=== PATIENT | female | born 1965 | race Caucasian/White ===

== ENCOUNTER 2024-01-10 17:47 | Inpatient (IN) | payer OTHER ==
[~2024-01-10] VITALS: Ht 157.5 cm; Wt 68.0 kg
[2024-01-10 17:59] VITALS: BP_SYST 156; PULSE 105; RESP 20; TEMP 100.2; O2SAT 98
[2024-01-10 18:48] LABS: BASOPHILS # (AUTO) 0.1 K/uL (0.0-0.2); BASOPHILS % (AUTO) 0.5 % (0.0-2.0); EOSINOPHILS % (AUTO) 0.1 % (0.0-4.0); HEMATOCRIT 36.8 % (36-48); HEMOGLOBIN 12.6 g/dL (12.0-16.0); LYMPHOCYTES # (AUTO) 2.9 K/uL (1.0-5.5); MEAN CORPUSCULAR HEMOGLOBIN 30 pg (27-31); MEAN CORPUSCULAR HGB CONC 34 % (32-36); MEAN CORPUSCULAR VOLUME 87 fL (79.0-98.0); MONOCYTES # (AUTO) 1.8 K/uL (0.0-1.0); MONOCYTES % (AUTO) 9.4 % (1.7-9.3); NEUTROPHILS # (AUTO) 14.4 K/uL (1.8-7.7); NEUTROPHILS % (AUTO) 74.7 % (40.0-70.0); PLATELET COUNT (AUTO) 247 K/uL (130-430); RED BLOOD CELL COUNT(AUTO) 4.24 MIL/uL (4.2-6.2); RED CELL DISTRIBUTION WIDTH 13.7 % (9.0-15.0); WHITE BLOOD COUNT (AUTO) 19.2 K/uL (4.8-10.8)
[2024-01-10] MEDS: ONDANSETRON HCL 4 MG/2 ML VIAL IVP ONE (18:59)
[2024-01-10] MEDS: MORPHINE 4 MG INJ. 4 MG/ML VIAL IVP ONE (18:59)
[2024-01-10] MEDS: NACL 0.9% 1,000 ML IV ONE ×2 (18:59→22:03)
[2024-01-10 19:07] LABS: CALCIUM 8.9 mg/dL (8.4-11.0); CREATININE 0.89 mg/dL (0.55-1.30); POTASSIUM 3.8 mmol/L (3.5-5.1)
[2024-01-10 19:11] LABS: BILIRUBIN,DIRECT 0.2 mg/dL (0.0-0.3); TOTAL BILIRUBIN 0.7 mg/dL (0.0-1.0); TOTAL PROTEIN, SERUM 7.2 g/dL (6.4-8.3)
[2024-01-10 19:12] LABS: BILIRUBIN,URINE 1+ (NEGATIVE); BLOOD, URINE 1+ (NEGATIVE); CLARITY/URINE CLEAR (CLEAR); COLOR,URINE YELLOW (YELLOW); GLUCOSE,URINE NEGATIVE (NEGATIVE); KETONES,URINE 3+ (NEGATIVE); LEUKOCYTE ESTERASE ,URINE NEGATIVE (NEGATIVE); NITRITE, URINE NEGATIVE (NEGATIVE); PROTEIN URINE NEGATIVE (NEGATIVE)
[2024-01-10 19:15] LABS: LYMPHOCYTES % (AUTO) 15.3 % (20.5-51.5)
[2024-01-10 19:22] LABS: BACTERIA,URINE FEW /HPF (None Seen); MUCUS,URINE None Seen /LPF (None Seen); RBC,URINE 0-3 /HPF (0-3); WBC,URINE 0-3 /HPF (0-3)
[2024-01-10] MEDS: ACETAMINOPHEN 500 MG TABLET PO ONE (19:24)
[2024-01-10] MEDS ORDERED: BUDE6HFA INH (19:51)
[2024-01-10] MEDS ORDERED: ALBU2.5V7 INH (19:51)
[2024-01-10] MEDS ORDERED: DIVA500T4 PO (19:51)
[2024-01-10] MEDS ORDERED: UBRO50TA (19:51)
[2024-01-10] MEDS ORDERED: ATRMDI INH (19:51)
[2024-01-10] MEDS ORDERED: LOSA25TA18 PO (19:51)
[2024-01-10] MEDS ORDERED: OMEP10SU2 PO (19:51)
[2024-01-10] MEDS ORDERED: PSEU30TA36 PO (19:51)
[2024-01-10] MEDS ORDERED: LORA10TA7 PO (19:51)
[2024-01-10] MEDS ORDERED: MONT-40 PO (19:51)
[2024-01-10] MEDS ORDERED: IBUP-2604 PO (20:10)
[2024-01-10] MEDS ORDERED: FISH400C3 PO (20:18)
[2024-01-10] MEDS ORDERED: [UNRECOGNIZED DRUG - CODE] PO (20:18)
[2024-01-10] MEDS ORDERED: ASCO500T20 PO (20:18)
[2024-01-10] MEDS ORDERED: ZINC10LO5 PO (20:18)
[2024-01-10] MEDS ORDERED: VIT1CAPS46 PO (20:18)
[2024-01-10] MEDS ORDERED: [UNRECOGNIZED DRUG - CODE] PO (20:18)
[2024-01-10] MEDS ORDERED: MULT-1164 PO (20:18)
[2024-01-10] MEDS ORDERED: CINN1CAP2 PO (20:18)
[2024-01-10] MEDS: KETOROLAC TROMETHAMINE 30 MG VIAL IVP ONE (20:52)
[2024-01-10] MEDS: metroNIDAZOLE 500 mg/NS 100 ML IV ONE (22:04)
[2024-01-11] VITALS (10 sets, daily range): BP systolic 122–145; PULSE 67–88; RESP 18–20; TEMP 97.1–100.7; O2SAT 90–98
[2024-01-11] MEDS: MORPHINE 4 MG INJ. 4 MG/ML VIAL IVP PRN (00:35)
[2024-01-11] MEDS: D5/0.45 NS 1,000 ML IV SCH (00:36)
[2024-01-11] MEDS: PIPERACILLIN/TAZOBACTAM 3.375 GM/VIAL (ZOSYN) IV ONE (03:26)
[2024-01-11] MEDS: PIPERACILLIN/TAZO 3.375 GM in NS 50 ML IV SCH (05:51)
[2024-01-11] MEDS ORDERED: ONDANSETRON HCL 4 MG/2 ML VIAL IVP PRN (06:00)
[2024-01-11] MEDS: ACETAMINOPHEN 325 MG TABLET PO PRN (06:56)
[2024-01-11] MEDS: ONDANSETRON HCL 4 MG/2 ML VIAL IVP PRN (06:57)
[2024-01-11] MEDS ORDERED: IPRATROPIUM BROMIDE 17 mCg/ACTUATION, 12.9 GM AER.W.ADAP INH SCH (15:00)
[2024-01-11] MEDS: MONTELUKAST 10 MG TABLET PO SCH (18:09)
[2024-01-11] MEDS: traMADol HCL HCL 50 MG TABLET (ULTRAM) PO PRN (18:09)
[2024-01-11] MEDS: BUDESONIDE 0.5 MG/2 ML AMPUL.NEB INH SCH (20:19)
[2024-01-11] MEDS: IPRATROPIUM/ALBUTEROL SULFATE 3 ML AMPUL.NEB (DUONEB) INH SCH (20:28)
[2024-01-11] MEDS ORDERED: BUDESONIDE/FORMOTEROL 160-4.5 mCg, 6 GM INHALER INH SCH (21:00)
[2024-01-11] MEDS: DIVALPROEX SODIUM 500 MG TAB.SR.24H (DEPAKOTE ER) PO SCH (21:57)
[2024-01-12] VITALS (11 sets, daily range): BP systolic 119–133; PULSE 72–93; RESP 16–18; TEMP 97.8–99.3; O2SAT 94–100
[2024-01-12 06:37] LABS: HEMATOCRIT 35.5 % (36-48); MEAN CORPUSCULAR HEMOGLOBIN 30 pg (27-31); MEAN CORPUSCULAR HGB CONC 34 % (32-36); MEAN CORPUSCULAR VOLUME 88 fL (79.0-98.0); PLATELET COUNT (AUTO) 226 K/uL (130-430); RED BLOOD CELL COUNT(AUTO) 4.03 MIL/uL (4.2-6.2); RED CELL DISTRIBUTION WIDTH 13.5 % (9.0-15.0); WHITE BLOOD COUNT (AUTO) 18.9 K/uL (4.8-10.8)
[2024-01-12 07:00] LABS: CALCIUM 8.6 mg/dL (8.4-11.0); CREATININE 0.92 mg/dL (0.55-1.30); POTASSIUM 3.7 mmol/L (3.5-5.1)
[2024-01-12] MEDS: MULTIVITS,CA,MINERALS/IRON/FA 1 TABLET PO SCH (09:11)
[2024-01-12] MEDS: ASCORBIC ACID 500 MG TABLET PO SCH (09:13)
[2024-01-12 09:34] LABS: BASOPHILS % (MANUAL) 0 % (0-2); EOSINOPHILS % (MANUAL) 0 % (0-7); LYMPHOCYTES % (MANUAL) 16 % (20-46); MONOCYTES % (MANUAL) 10 % (0-11); PLATELET ESTIMATE ADEQUATE (ADEQUATE)
[2024-01-12] MEDS: POTASSIUM CHLORIDE 20 MEQ TABLET.ER PO ONE (13:59)
[2024-01-12] MEDS: P-EPHED SUL/LORATADINE 1 EACH TAB.SR.12H PO ONE (16:20)
[2024-01-13] VITALS (8 sets, daily range): BP systolic 116–130; PULSE 60–97; RESP 16–20; TEMP 97.9–99.7; O2SAT 97–100
[2024-01-13 06:20] LABS: BASOPHILS % (AUTO) 0.3 % (0.0-2.0); EOSINOPHILS # (AUTO) 0.1 K/uL (0.0-0.4); EOSINOPHILS % (AUTO) 0.8 % (0.0-4.0); HEMATOCRIT 33.2 % (36-48); HEMOGLOBIN 11.2 g/dL (12.0-16.0); LYMPHOCYTES # (AUTO) 2.4 K/uL (1.0-5.5); LYMPHOCYTES % (AUTO) 14.8 % (20.5-51.5); MEAN CORPUSCULAR HEMOGLOBIN 30 pg (27-31); MEAN CORPUSCULAR HGB CONC 34 % (32-36); MEAN CORPUSCULAR VOLUME 88 fL (79.0-98.0); MONOCYTES # (AUTO) 1.5 K/uL (0.0-1.0); MONOCYTES % (AUTO) 9.3 % (1.7-9.3); NEUTROPHILS # (AUTO) 12.2 K/uL (1.8-7.7); NEUTROPHILS % (AUTO) 74.8 % (40.0-70.0); PLATELET COUNT (AUTO) 231 K/uL (130-430); RED BLOOD CELL COUNT(AUTO) 3.78 MIL/uL (4.2-6.2); RED CELL DISTRIBUTION WIDTH 13.6 % (9.0-15.0); WHITE BLOOD COUNT (AUTO) 16.2 K/uL (4.8-10.8)
[2024-01-13 06:33] LABS: CALCIUM 8.2 mg/dL (8.4-11.0); CREATININE 0.74 mg/dL (0.55-1.30); POTASSIUM 3.5 mmol/L (3.5-5.1)
[2024-01-13] MEDS: ALBUTEROL SULFATE 0.083% 2.5 MG/3 ML VIAL.NEB INH PRN (07:47)
[2024-01-13] MEDS: P-EPHED SUL/LORATADINE 1 EACH TAB.SR.12H PO SCH (10:24)
[2024-01-13] MEDS ORDERED: DIATR MEGLU/DIATRIZ SOD 30 ML SOLUTION PO ONE (13:19)
[2024-01-13] MEDS: NORMAL SALINE 5 ML DISP.SYRIN IVF SCH (21:47)
[2024-01-13] MEDS: metroNIDAZOLE 500 mg/NS 100 ML IV SCH (21:49)
[2024-01-14] VITALS (9 sets, daily range): BP systolic 131–145; PULSE 86–95; RESP 16–18; TEMP 97.6–98.2; O2SAT 94–100
[2024-01-14 06:18] LABS: BASOPHILS % (AUTO) 0.3 % (0.0-2.0); EOSINOPHILS # (AUTO) 0.2 K/uL (0.0-0.4); EOSINOPHILS % (AUTO) 1.5 % (0.0-4.0); HEMATOCRIT 32.6 % (36-48); HEMOGLOBIN 11.2 g/dL (12.0-16.0); LYMPHOCYTES # (AUTO) 2.5 K/uL (1.0-5.5); LYMPHOCYTES % (AUTO) 20.7 % (20.5-51.5); MEAN CORPUSCULAR HEMOGLOBIN 30 pg (27-31); MEAN CORPUSCULAR HGB CONC 34 % (32-36); MEAN CORPUSCULAR VOLUME 87 fL (79.0-98.0); MONOCYTES # (AUTO) 1.1 K/uL (0.0-1.0); MONOCYTES % (AUTO) 9.3 % (1.7-9.3); NEUTROPHILS # (AUTO) 8.2 K/uL (1.8-7.7); NEUTROPHILS % (AUTO) 68.2 % (40.0-70.0); PLATELET COUNT (AUTO) 268 K/uL (130-430); RED BLOOD CELL COUNT(AUTO) 3.74 MIL/uL (4.2-6.2); RED CELL DISTRIBUTION WIDTH 13.4 % (9.0-15.0)
[2024-01-14 06:37] LABS: ALBUMIN 2.2 g/dL (3.4-4.8); CALCIUM 8.3 mg/dL (8.4-11.0); CREATININE 0.71 mg/dL (0.55-1.30); POTASSIUM 3.4 mmol/L (3.5-5.1); TOTAL BILIRUBIN 0.3 mg/dL (0.0-1.0); TOTAL PROTEIN, SERUM 6.1 g/dL (6.4-8.3)
[2024-01-15] VITALS (9 sets, daily range): BP systolic 126–143; PULSE 78–95; RESP 18–20; TEMP 97.8–98.4; O2SAT 93–99
[2024-01-15 04:17] LABS: BASOPHILS # (AUTO) 0.1 K/uL (0.0-0.2); BASOPHILS % (AUTO) 0.6 % (0.0-2.0); EOSINOPHILS # (AUTO) 0.2 K/uL (0.0-0.4); EOSINOPHILS % (AUTO) 1.8 % (0.0-4.0); HEMATOCRIT 33.6 % (36-48); HEMOGLOBIN 11.5 g/dL (12.0-16.0); LYMPHOCYTES # (AUTO) 2.5 K/uL (1.0-5.5); MEAN CORPUSCULAR HEMOGLOBIN 30 pg (27-31); MEAN CORPUSCULAR HGB CONC 34 % (32-36); MEAN CORPUSCULAR VOLUME 87 fL (79.0-98.0); MONOCYTES # (AUTO) 0.9 K/uL (0.0-1.0); NEUTROPHILS # (AUTO) 5.9 K/uL (1.8-7.7); NEUTROPHILS % (AUTO) 62.6 % (40.0-70.0); PLATELET COUNT (AUTO) 304 K/uL (130-430); RED BLOOD CELL COUNT(AUTO) 3.86 MIL/uL (4.2-6.2); RED CELL DISTRIBUTION WIDTH 13.6 % (9.0-15.0); WHITE BLOOD COUNT (AUTO) 9.5 K/uL (4.8-10.8)
[2024-01-15 04:41] LABS: ALBUMIN 2.5 g/dL (3.4-4.8); CALCIUM 8.4 mg/dL (8.4-11.0); CREATININE 0.8 mg/dL (0.55-1.30); POTASSIUM 3.1 mmol/L (3.5-5.1); TOTAL BILIRUBIN 0.3 mg/dL (0.0-1.0); TOTAL PROTEIN, SERUM 6.9 g/dL (6.4-8.3)
[2024-01-15] MEDS: POTASSIUM CHLORIDE 20 MEQ TABLET.ER PO ONE (12:37)
[2024-01-16] VITALS (10 sets, daily range): BP systolic 124–149; PULSE 74–84; RESP 16–20; TEMP 97.2–98.3; O2SAT 95–100
[2024-01-16 06:30] LABS: BASOPHILS # (AUTO) 0.1 K/uL (0.0-0.2); BASOPHILS % (AUTO) 0.7 % (0.0-2.0); EOSINOPHILS # (AUTO) 0.3 K/uL (0.0-0.4); EOSINOPHILS % (AUTO) 3.7 % (0.0-4.0); HEMATOCRIT 32.5 % (36-48); LYMPHOCYTES # (AUTO) 2.2 K/uL (1.0-5.5); LYMPHOCYTES % (AUTO) 29.7 % (20.5-51.5); MEAN CORPUSCULAR HEMOGLOBIN 30 pg (27-31); MEAN CORPUSCULAR HGB CONC 34 % (32-36); MEAN CORPUSCULAR VOLUME 87 fL (79.0-98.0); MONOCYTES # (AUTO) 0.8 K/uL (0.0-1.0); NEUTROPHILS # (AUTO) 4.2 K/uL (1.8-7.7); NEUTROPHILS % (AUTO) 55.9 % (40.0-70.0); PLATELET COUNT (AUTO) 301 K/uL (130-430); RED BLOOD CELL COUNT(AUTO) 3.72 MIL/uL (4.2-6.2); RED CELL DISTRIBUTION WIDTH 13.6 % (9.0-15.0); WHITE BLOOD COUNT (AUTO) 7.5 K/uL (4.8-10.8)
[2024-01-16 06:55] LABS: ALBUMIN 2.3 g/dL (3.4-4.8); CALCIUM 8.2 mg/dL (8.4-11.0); CREATININE 0.77 mg/dL (0.55-1.30); POTASSIUM 3.4 mmol/L (3.5-5.1); TOTAL BILIRUBIN 0.2 mg/dL (0.0-1.0); TOTAL PROTEIN, SERUM 6.2 g/dL (6.4-8.3)
[2024-01-16] MEDS: VANCOMYCIN HCL ORAL SOLUTION 125 MG/5 ML, 150 ML PO SCH (12:21)
[2024-01-16] MEDS ORDERED: SACCHAROMYCES BOULARDII 250 MG CAPSULE (FLORASTOR) PO SCH (12:45)
[2024-01-16] MEDS: LACTOBACILLUS RHAMNOSUS GG 1 CAP CAPSULE PO ONE (13:30)
[2024-01-16] MEDS: LACTOBACILLUS RHAMNOSUS GG 1 CAP CAPSULE PO SCH (21:33)
[2024-01-17] VITALS (11 sets, daily range): BP systolic 124–162; PULSE 82–90; RESP 16–18; TEMP 97.8–98.2; O2SAT 96–100
[2024-01-17 05:41] LABS: BASOPHILS # (AUTO) 0.1 K/uL (0.0-0.2); BASOPHILS % (AUTO) 0.8 % (0.0-2.0); EOSINOPHILS # (AUTO) 0.2 K/uL (0.0-0.4); EOSINOPHILS % (AUTO) 2.7 % (0.0-4.0); HEMOGLOBIN 11.6 g/dL (12.0-16.0); LYMPHOCYTES # (AUTO) 2.4 K/uL (1.0-5.5); LYMPHOCYTES % (AUTO) 25.8 % (20.5-51.5); MEAN CORPUSCULAR HEMOGLOBIN 30 pg (27-31); MEAN CORPUSCULAR HGB CONC 34 % (32-36); MEAN CORPUSCULAR VOLUME 87 fL (79.0-98.0); MONOCYTES # (AUTO) 0.9 K/uL (0.0-1.0); MONOCYTES % (AUTO) 9.3 % (1.7-9.3); NEUTROPHILS # (AUTO) 5.7 K/uL (1.8-7.7); NEUTROPHILS % (AUTO) 61.4 % (40.0-70.0); PLATELET COUNT (AUTO) 360 K/uL (130-430); RED CELL DISTRIBUTION WIDTH 13.7 % (9.0-15.0); WHITE BLOOD COUNT (AUTO) 9.3 K/uL (4.8-10.8)
[2024-01-17 06:06] LABS: ALBUMIN 2.6 g/dL (3.4-4.8); CALCIUM 8.6 mg/dL (8.4-11.0); CREATININE 0.87 mg/dL (0.55-1.30); POTASSIUM 3.4 mmol/L (3.5-5.1); TOTAL BILIRUBIN 0.2 mg/dL (0.0-1.0); TOTAL PROTEIN, SERUM 6.9 g/dL (6.4-8.3)
[2024-01-17] MEDS ORDERED: DIATR MEGLU/DIATRIZ SOD 30 ML SOLUTION PO ONE (12:59)
[2024-01-17] MEDS: LOSARTAN POTASSIUM 25 MG TABLET PO ONE (13:15)
[2024-01-17] MEDS ORDERED: VANC125C10 PO (14:16)
[2024-01-17] MEDS ORDERED: AUG875 PO (17:14)
[2024-01-17] MEDS ORDERED: LACT1CAP57 PO (17:15)
[2024-01-18] MEDS ORDERED: LOSARTAN POTASSIUM 25 MG TABLET PO SCH (09:00)
== END 2024-01-17 18:45 | disposition home or self-care (01) | DRG 872 ==
LOC: SED 17:47 → SMU 22:21
PROVIDERS: ADMIT Specialist; ATTEND Specialist
DX: A41.9 Sepsis, unspecified organism (principal); K57.20 Diverticulitis of large intestine with perforation and abscess without bleeding; A04.72 Enterocolitis due to Clostridium difficile, not specified as recurrent; I10 Essential (primary) hypertension; J45.909 Unspecified asthma, uncomplicated; N83.202 Unspecified ovarian cyst, left side; K76.0 Fatty (change of) liver, not elsewhere classified; G89.29 Other chronic pain; Z88.8 Allergy status to other drugs, medicaments and biological substances; Z88.2 Allergy status to sulfonamides; Z90.710 Acquired absence of both cervix and uterus
CPT/HCPCS: 36415; 70486-TC; 80048; 80053; 80076; 81000; 81001; 81015; 83605; 83690; 85007; 85025; 85027; 87040; 87230; 94640; 94760; 99285; J1885; J1956; J2270; J2405; J2543; J3490; J7626; Q9964; Q9967

== ENCOUNTER 2024-01-28 18:23 | Inpatient (IN) | payer OTHER ==
[~2024-01-28] VITALS: Ht 154.9 cm; Wt 63.5 kg
[~2024-01-28 18:23] MED LIST: ALBU2.5V7 INH; ASCO500T20 PO; ATRMDI INH; AUG875 PO; BUDE6HFA INH; CINN1CAP2 PO; DIVA500T4 PO; FISH400C3 PO; IBUP-2604 PO; LACT1CAP57 PO; LORA10TA7 PO; LOSA25TA18 PO; MONT-40 PO; MULT-1164 PO; PSEU30TA36 PO; UBRO50TA; VANC125C10 PO; VIT1CAPS46 PO; ZINC10LO5 PO; [UNRECOGNIZED DRUG - CODE] PO; [UNRECOGNIZED DRUG - CODE] PO
[2024-01-28 18:33] VITALS: BP_SYST 137; PULSE 93; RESP 20; TEMP 97.5; O2SAT 100
[2024-01-28 19:14] LABS: BILIRUBIN,URINE NEGATIVE (NEGATIVE); BLOOD, URINE NEGATIVE (NEGATIVE); COLOR,URINE YELLOW (YELLOW); GLUCOSE,URINE NEGATIVE (NEGATIVE); KETONES,URINE NEGATIVE (NEGATIVE); LEUKOCYTE ESTERASE ,URINE 1+ (NEGATIVE); NITRITE, URINE NEGATIVE (NEGATIVE); PH,URINE 7.5 (5.0-8.0); PROTEIN URINE NEGATIVE (NEGATIVE); UROBILINOGEN,URINE 0.2 (0.2-1.0)
[2024-01-28 19:19] LABS: CLARITY/URINE SLIGHTLY HAZY (CLEAR)
[2024-01-28 19:34] LABS: BACTERIA,URINE MODERATE /HPF (None Seen); RBC,URINE 0-3 /HPF (0-3)
[2024-01-28 19:35] LABS: MUCUS,URINE 1+ /LPF (None Seen); URINE AMORPHOUS PHOSPHATES 2+ /HPF (None Seen)
[2024-01-28] MEDS: NS 1000 ML IV.SOLN IV ONE (20:25)
[2024-01-28 20:54] LABS: BASOPHILS # (AUTO) 0.1 K/uL (0.0-0.2); BASOPHILS % (AUTO) 1.1 % (0.0-2.0); EOSINOPHILS # (AUTO) 0.1 K/uL (0.0-0.4); EOSINOPHILS % (AUTO) 1.2 % (0.0-4.0); HEMATOCRIT 36.6 % (36-48); HEMOGLOBIN 12.3 g/dL (12.0-16.0); LYMPHOCYTES # (AUTO) 3.4 K/uL (1.0-5.5); LYMPHOCYTES % (AUTO) 28.1 % (20.5-51.5); MEAN CORPUSCULAR HEMOGLOBIN 29 pg (27-31); MEAN CORPUSCULAR HGB CONC 34 % (32-36); MEAN CORPUSCULAR VOLUME 88 fL (79.0-98.0); MONOCYTES % (AUTO) 8.3 % (1.7-9.3); NEUTROPHILS # (AUTO) 7.5 K/uL (1.8-7.7); NEUTROPHILS % (AUTO) 61.3 % (40.0-70.0); PLATELET COUNT (AUTO) 288 K/uL (130-430); RED BLOOD CELL COUNT(AUTO) 4.19 MIL/uL (4.2-6.2); RED CELL DISTRIBUTION WIDTH 14.1 % (9.0-15.0); WHITE BLOOD COUNT (AUTO) 12.3 K/uL (4.8-10.8)
[2024-01-28 21:05] LABS: ANION GAP 11 (5-15); CALCIUM 8.8 mg/dL (8.4-11.0); CARBON DIOXIDE 28 mmol/L (23-29); CHLORIDE 105 mmol/L (98-107); GFR AFRICAN AMERICAN 83 mL/min (>90); GLUCOSE 89 mg/dL (74-106); POTASSIUM 3.9 mmol/L (3.5-5.1); SODIUM SERUM 144 mmol/L (136-145); UREA NITROGEN, BLOOD 15 mg/dL (8-21)
[2024-01-28 21:06] LABS: GFR NON AFRICAN-AMERICAN 69 mL/min (>90)
[2024-01-28 21:13] LABS: ALBUMIN 2.9 g/dL (3.4-4.8); ASPARTATE AMINOTRANSFERASE < 5 U/L (10-37); BILIRUBIN,DIRECT 0.1 mg/dL (0.0-0.3); TOTAL BILIRUBIN 0.2 mg/dL (0.0-1.0); TOTAL PROTEIN, SERUM 7.4 g/dL (6.4-8.3)
[2024-01-28 21:24] LABS: ALANINE AMINOTRANSFERASE 9 U/L (12-78)
[2024-01-28] MEDS ORDERED: ONDANSETRON HCL 4 MG/2 ML VIAL IVP PRN (22:00)
[2024-01-28] MEDS ORDERED: HYDROcodone/ACETAMIN 5-325 MG TAB (NORCO/ VICODIN) PO PRN (22:00)
[2024-01-28] MEDS ORDERED: ACETAMINOPHEN 325 MG TABLET PO PRN (22:00)
[2024-01-28] MEDS ORDERED: MORPHINE 2 MG/ML INJ. SYRINGE IVP PRN (22:00)
[2024-01-28 23:38] VITALS: BP_SYST 135; PULSE 72; RESP 18; TEMP 98
[2024-01-29] VITALS (9 sets, daily range): BP systolic 115–132; PULSE 70–86; RESP 18; TEMP 97.4–97.9; O2SAT 97–99
[2024-01-29] MEDS: HYDROcodone/ACETAMIN 10-325 MG TAB PO PRN (06:21)
[2024-01-29 06:38] LABS: BASOPHILS # (AUTO) 0.1 K/uL (0.0-0.2); BASOPHILS % (AUTO) 0.6 % (0.0-2.0); EOSINOPHILS # (AUTO) 0.1 K/uL (0.0-0.4); EOSINOPHILS % (AUTO) 0.9 % (0.0-4.0); HEMATOCRIT 35.8 % (36-48); LYMPHOCYTES # (AUTO) 3.5 K/uL (1.0-5.5); LYMPHOCYTES % (AUTO) 29.5 % (20.5-51.5); MEAN CORPUSCULAR HEMOGLOBIN 30 pg (27-31); MEAN CORPUSCULAR HGB CONC 34 % (32-36); MEAN CORPUSCULAR VOLUME 88 fL (79.0-98.0); MONOCYTES # (AUTO) 0.9 K/uL (0.0-1.0); MONOCYTES % (AUTO) 7.8 % (1.7-9.3); NEUTROPHILS # (AUTO) 7.3 K/uL (1.8-7.7); NEUTROPHILS % (AUTO) 61.2 % (40.0-70.0); PLATELET COUNT (AUTO) 283 K/uL (130-430); RED BLOOD CELL COUNT(AUTO) 4.07 MIL/uL (4.2-6.2); RED CELL DISTRIBUTION WIDTH 14.4 % (9.0-15.0)
[2024-01-29 07:21] LABS: ALBUMIN 2.6 g/dL (3.4-4.8); CALCIUM 8.4 mg/dL (8.4-11.0); CREATININE 0.83 mg/dL (0.55-1.30); POTASSIUM 4.1 mmol/L (3.5-5.1); TOTAL BILIRUBIN 0.4 mg/dL (0.0-1.0); TOTAL PROTEIN, SERUM 6.6 g/dL (6.4-8.3)
[2024-01-29] MEDS: LACTOBACILLUS RHAMNOSUS GG 1 CAP CAPSULE PO SCH (08:27)
[2024-01-29] MEDS: LOSARTAN POTASSIUM 25 MG TABLET PO SCH (08:27)
[2024-01-29] MEDS ORDERED: LOSARTAN POTASSIUM 25 MG TABLET PO SCH (09:00)
[2024-01-29] MEDS ORDERED: LACTOBACILLUS RHAMNOSUS GG 1 CAP CAPSULE PO SCH (09:00)
[2024-01-30] VITALS: BP_SYST 132; PULSE 83; RESP 18; TEMP 97.7; O2SAT 99
[2024-01-30 04:00] VITALS: BP_SYST 126; PULSE 78; RESP 18; TEMP 97.7; O2SAT 99
[2024-01-30 06:02] LABS: BASOPHILS # (AUTO) 0.1 K/uL (0.0-0.2); BASOPHILS % (AUTO) 0.8 % (0.0-2.0); EOSINOPHILS # (AUTO) 0.2 K/uL (0.0-0.4); EOSINOPHILS % (AUTO) 2.1 % (0.0-4.0); HEMATOCRIT 35.3 % (36-48); LYMPHOCYTES # (AUTO) 3.1 K/uL (1.0-5.5); LYMPHOCYTES % (AUTO) 36.2 % (20.5-51.5); MEAN CORPUSCULAR HEMOGLOBIN 30 pg (27-31); MEAN CORPUSCULAR HGB CONC 34 % (32-36); MEAN CORPUSCULAR VOLUME 87 fL (79.0-98.0); MONOCYTES # (AUTO) 0.8 K/uL (0.0-1.0); MONOCYTES % (AUTO) 9.4 % (1.7-9.3); NEUTROPHILS # (AUTO) 4.5 K/uL (1.8-7.7); NEUTROPHILS % (AUTO) 51.5 % (40.0-70.0); PLATELET COUNT (AUTO) 257 K/uL (130-430); RED BLOOD CELL COUNT(AUTO) 4.05 MIL/uL (4.2-6.2); RED CELL DISTRIBUTION WIDTH 14.3 % (9.0-15.0); WHITE BLOOD COUNT (AUTO) 8.7 K/uL (4.8-10.8)
[2024-01-30 06:47] LABS: ALBUMIN 2.5 g/dL (3.4-4.8); CALCIUM 8.5 mg/dL (8.4-11.0); CREATININE 0.78 mg/dL (0.55-1.30); POTASSIUM 3.9 mmol/L (3.5-5.1); TOTAL BILIRUBIN 0.4 mg/dL (0.0-1.0); TOTAL PROTEIN, SERUM 6.4 g/dL (6.4-8.3)
[2024-01-30 08:00] VITALS: BP_SYST 118; PULSE 68; RESP 16; TEMP 97.6; O2SAT 100; O2SAT 95
[2024-01-30 12:00] VITALS: BP_SYST 122; PULSE 67; RESP 16; TEMP 97.7; O2SAT 95
[2024-01-30 16:00] VITALS: BP_SYST 121; PULSE 68; RESP 16; TEMP 98.7; O2SAT 100
[2024-01-30 20:00] VITALS: BP_SYST 136; PULSE 70; RESP 18; TEMP 97.6; O2SAT 100
[2024-01-31] VITALS: BP_SYST 128; PULSE 68; RESP 18; TEMP 97.8; O2SAT 100
[2024-01-31 06:13] LABS: BASOPHILS # (AUTO) 0.1 K/uL (0.0-0.2); BASOPHILS % (AUTO) 0.7 % (0.0-2.0); EOSINOPHILS # (AUTO) 0.2 K/uL (0.0-0.4); EOSINOPHILS % (AUTO) 2.6 % (0.0-4.0); HEMATOCRIT 36.4 % (36-48); HEMOGLOBIN 12.4 g/dL (12.0-16.0); LYMPHOCYTES # (AUTO) 2.7 K/uL (1.0-5.5); LYMPHOCYTES % (AUTO) 33.3 % (20.5-51.5); MEAN CORPUSCULAR HEMOGLOBIN 30 pg (27-31); MEAN CORPUSCULAR HGB CONC 34 % (32-36); MEAN CORPUSCULAR VOLUME 87 fL (79.0-98.0); MONOCYTES # (AUTO) 0.7 K/uL (0.0-1.0); MONOCYTES % (AUTO) 9.4 % (1.7-9.3); NEUTROPHILS # (AUTO) 4.3 K/uL (1.8-7.7); PLATELET COUNT (AUTO) 264 K/uL (130-430); RED BLOOD CELL COUNT(AUTO) 4.18 MIL/uL (4.2-6.2); RED CELL DISTRIBUTION WIDTH 13.9 % (9.0-15.0)
[2024-01-31 06:50] LABS: ALBUMIN 2.6 g/dL (3.4-4.8); CALCIUM 8.5 mg/dL (8.4-11.0); CREATININE 0.62 mg/dL (0.55-1.30); POTASSIUM 4.1 mmol/L (3.5-5.1); TOTAL BILIRUBIN 0.3 mg/dL (0.0-1.0); TOTAL PROTEIN, SERUM 6.7 g/dL (6.4-8.3)
[2024-01-31 08:00] VITALS: BP_SYST 120; PULSE 65; RESP 15; TEMP 97.7; O2SAT 99
[2024-01-31 12:00] VITALS: BP_SYST 143; PULSE 67; RESP 16; TEMP 97.9; O2SAT 99
[2024-01-31] MEDS ORDERED: LEVO-62 PO (14:31)
[2024-01-31] MEDS ORDERED: HYDR-3919 PO (14:31)
[2024-01-31 16:00] VITALS: BP_SYST 119; PULSE 64; RESP 16; TEMP 97.3; O2SAT 98
[2024-01-31 17:21] VITALS: BP_SYST 119; PULSE 64; RESP 16; TEMP 97.3; O2SAT 98
== END 2024-01-31 18:00 | disposition home or self-care (01) | DRG 392 ==
LOC: SED 18:23 → SMU 21:47
PROVIDERS: ADMIT Family Medicine; ATTEND Family Medicine
DX: K57.32 Diverticulitis of large intestine without perforation or abscess without bleeding (principal); E44.1 Mild protein-calorie malnutrition; I10 Essential (primary) hypertension; J45.909 Unspecified asthma, uncomplicated; G89.29 Other chronic pain; D72.829 Elevated white blood cell count, unspecified; Z88.1 Allergy status to other antibiotic agents; Z88.5 Allergy status to narcotic agent; Z88.2 Allergy status to sulfonamides; Z91.018 Allergy to other foods; Z88.8 Allergy status to other drugs, medicaments and biological substances; Z90.710 Acquired absence of both cervix and uterus; Z68.26 Body mass index [BMI] 26.0-26.9, adult
CPT/HCPCS: 36415; 80048; 80053; 80076; 81000; 81001; 81015; 83605; 84484; 85025; 87040; 87081; 87086; 93005; 96361; 96365; 99285; J1956; Q9967

== ENCOUNTER 2024-02-04 09:24 | Inpatient (IN) | payer OTHER ==
[~2024-02-04] VITALS: Ht 154.9 cm; Wt 59.9 kg
[~2024-02-04 09:24] MED LIST changes: -AUG875 PO; +HYDR-3919 PO; -IBUP-2604 PO; +LEVO-62 PO; -PSEU30TA36 PO; -UBRO50TA; -VANC125C10 PO; -VIT1CAPS46 PO; -ZINC10LO5 PO
[2024-02-04 09:25] VITALS: BP_SYST 152; PULSE 89; RESP 18; TEMP 98.3; O2SAT 99
[2024-02-04 09:53] LABS: BASOPHILS # (AUTO) 0.1 K/uL (0.0-0.2); BASOPHILS % (AUTO) 0.6 % (0.0-2.0); EOSINOPHILS # (AUTO) 0.1 K/uL (0.0-0.4); EOSINOPHILS % (AUTO) 1.2 % (0.0-4.0); HEMATOCRIT 39.7 % (36-48); HEMOGLOBIN 13.6 g/dL (12.0-16.0); LYMPHOCYTES # (AUTO) 2.1 K/uL (1.0-5.5); LYMPHOCYTES % (AUTO) 21.5 % (20.5-51.5); MEAN CORPUSCULAR HEMOGLOBIN 30 pg (27-31); MEAN CORPUSCULAR HGB CONC 34 % (32-36); MEAN CORPUSCULAR VOLUME 87 fL (79.0-98.0); MONOCYTES # (AUTO) 0.6 K/uL (0.0-1.0); MONOCYTES % (AUTO) 5.9 % (1.7-9.3); NEUTROPHILS # (AUTO) 6.9 K/uL (1.8-7.7); NEUTROPHILS % (AUTO) 70.8 % (40.0-70.0); PLATELET COUNT (AUTO) 280 K/uL (130-430); RED BLOOD CELL COUNT(AUTO) 4.55 MIL/uL (4.2-6.2); RED CELL DISTRIBUTION WIDTH 14.2 % (9.0-15.0); WHITE BLOOD COUNT (AUTO) 9.8 K/uL (4.8-10.8)
[2024-02-04] MEDS ORDERED: PSEU30TA36 PO (09:56)
[2024-02-04 10:13] LABS: ANION GAP 10 (5-15); CALCIUM 9.5 mg/dL (8.4-11.0); CARBON DIOXIDE 28 mmol/L (23-29); CHLORIDE 104 mmol/L (98-107); GFR AFRICAN AMERICAN 54 mL/min (>90); GLUCOSE 106 mg/dL (74-106); POTASSIUM 4.4 mmol/L (3.5-5.1); SODIUM SERUM 142 mmol/L (136-145); UREA NITROGEN, BLOOD 14 mg/dL (8-21)
[2024-02-04 10:14] LABS: GFR NON AFRICAN-AMERICAN 45 mL/min (>90)
[2024-02-04 10:17] LABS: INR 1.1 (0.8-1.2); PROTHROMBIN TIME 11.6 SECS (9.5-12.5)
[2024-02-04 10:23] LABS: ALANINE AMINOTRANSFERASE 19 U/L (12-78); ALBUMIN 3.3 g/dL (3.4-4.8); ASPARTATE AMINOTRANSFERASE 18 U/L (10-37); BILIRUBIN,DIRECT 0.1 mg/dL (0.0-0.3); TOTAL BILIRUBIN 0.3 mg/dL (0.0-1.0); TOTAL PROTEIN, SERUM 7.9 g/dL (6.4-8.3)
[2024-02-04] MEDS: metroNIDAZOLE 500 mg/NS 100 ML IV ONE (11:29)
[2024-02-04] MEDS: D5/0.45 NS 1,000 ML IV SCH (12:06)
[2024-02-04 12:07] LABS: BILIRUBIN,URINE NEGATIVE (NEGATIVE); BLOOD, URINE NEGATIVE (NEGATIVE); CLARITY/URINE CLEAR (CLEAR); COLOR,URINE YELLOW (YELLOW); GLUCOSE,URINE NEGATIVE (NEGATIVE); KETONES,URINE TRACE (NEGATIVE); LEUKOCYTE ESTERASE ,URINE NEGATIVE (NEGATIVE); NITRITE, URINE NEGATIVE (NEGATIVE); PH,URINE 7.5 (5.0-8.0); PROTEIN URINE NEGATIVE (NEGATIVE); UROBILINOGEN,URINE 0.2 (0.2-1.0)
[2024-02-04] MEDS ORDERED: PIPERACILLIN/TAZOBACTAM 2.25 GM VIAL IV ONE (12:08)
[2024-02-04] MEDS: PIPERACILLIN/TAZOBACTAM 2.25 GM in D5W 50 ML IV SCH (12:19)
[2024-02-04 13:47] VITALS: BP_SYST 129; PULSE 72; RESP 18; TEMP 98.5
[2024-02-04 19:52] VITALS: PULSE 78; RESP 16; TEMP 97.6; O2SAT 97
[2024-02-04 20:01] VITALS: BP_SYST 126; PULSE 73; RESP 16; TEMP 97.6; O2SAT 97
[2024-02-04 20:04] VITALS: O2SAT 99
[2024-02-04] MEDS: GOLYTELY / COLYTE SOLUTION 4 LITERS PO ONE (20:50)
[2024-02-05 01:53] VITALS: BP_SYST 126; PULSE 70; RESP 16; TEMP 97.7; O2SAT 97
[2024-02-05 04:48] LABS: BASOPHILS % (AUTO) 0.4 % (0.0-2.0); EOSINOPHILS # (AUTO) 0.2 K/uL (0.0-0.4); EOSINOPHILS % (AUTO) 2.4 % (0.0-4.0); HEMATOCRIT 35.1 % (36-48); LYMPHOCYTES # (AUTO) 3.7 K/uL (1.0-5.5); LYMPHOCYTES % (AUTO) 39.5 % (20.5-51.5); MEAN CORPUSCULAR HEMOGLOBIN 29 pg (27-31); MEAN CORPUSCULAR HGB CONC 34 % (32-36); MEAN CORPUSCULAR VOLUME 86 fL (79.0-98.0); MONOCYTES # (AUTO) 0.8 K/uL (0.0-1.0); MONOCYTES % (AUTO) 8.1 % (1.7-9.3); NEUTROPHILS # (AUTO) 4.6 K/uL (1.8-7.7); NEUTROPHILS % (AUTO) 49.6 % (40.0-70.0); PLATELET COUNT (AUTO) 232 K/uL (130-430); RED BLOOD CELL COUNT(AUTO) 4.08 MIL/uL (4.2-6.2); RED CELL DISTRIBUTION WIDTH 14.2 % (9.0-15.0); WHITE BLOOD COUNT (AUTO) 9.3 K/uL (4.8-10.8)
[2024-02-05 05:25] LABS: CALCIUM 8.5 mg/dL (8.4-11.0); CREATININE 0.91 mg/dL (0.55-1.30); POTASSIUM 3.6 mmol/L (3.5-5.1)
[2024-02-05 07:57] VITALS: O2SAT 100
[2024-02-05 08:01] VITALS: BP_SYST 127; PULSE 70; RESP 17; TEMP 96.7; O2SAT 100
[2024-02-05] MEDS: BUPIVACAINE LIPOSOME/PF 266 MG/20 ML VIAL INFIL ONE (10:32)
[2024-02-05] MEDS: HYDROmorphone 2 MG/ML VIAL ONE (10:33)
[2024-02-05] MEDS: MIDAZOLAM HCL 2 MG/2 ML VIAL (VERSED) ONE (10:33)
[2024-02-05] MEDS ORDERED: NS IRRIG SOLN 1000 ML IR ONE (10:55)
[2024-02-05] MEDS ORDERED: METOCLOPRAMIDE HCL 10 MG/2 ML VIAL ONE (10:55)
[2024-02-05] MEDS ORDERED: ALBUTEROL MDI INHALATION 8 GM INH ONE (10:55)
[2024-02-05] MEDS ORDERED: ROCURONIUM BROMIDE 10 MG/ML (ZEMURON) ONE (10:55)
[2024-02-05] MEDS ORDERED: SEVOFLURANE 15 MIN GAS INH ONE (10:55)
[2024-02-05] MEDS ORDERED: ONDANSETRON HCL 4 MG/2 ML VIAL ONE (10:55)
[2024-02-05] MEDS ORDERED: LR 1,000 ML IV.SOLN IV ONE (10:55)
[2024-02-05] MEDS ORDERED: ePHEDrine sulfate 50 MG/ML VIAL ONE (10:55)
[2024-02-05] MEDS ORDERED: PIPERACILLIN/TAZOBACTAM 3.375 GM/VIAL (ZOSYN) IV ONE (10:55)
[2024-02-05] MEDS ORDERED: PROPOFOL 200MG/ 20ML VIAL (DIPRIVAN) IV ONE (10:55)
[2024-02-05] MEDS ORDERED: BUPIVACAINE /PF 0.25% 30 ML VIAL INJ ONE (10:55)
[2024-02-05] MEDS ORDERED: SUCCINYLCHOLINE CHLORIDE 20 MG/ML(QUELICIN) ONE (10:55)
[2024-02-05] MEDS ORDERED: KETOROLAC TROMETHAMINE 30 MG VIAL ONE (10:55)
[2024-02-05] MEDS ORDERED: METOCLOPRAMIDE HCL 10 MG/2 ML VIAL IVP PRN (13:30)
[2024-02-05] MEDS ORDERED: MORPHINE 4 MG INJ. 4 MG/ML VIAL IVP PRN ×2 (13:30)
[2024-02-05] MEDS ORDERED: NALOXONE HCL 0.4 MG/ML AMP (NARCAN) IVP PRN (13:30)
[2024-02-05] MEDS ORDERED: ONDANSETRON HCL 4 MG/2 ML VIAL IVP PRN (13:30)
[2024-02-05] MEDS ORDERED: HYDROmorphone 1 MG/ML INJ. CARTRIDGE IVP PRN (13:30)
[2024-02-05] MEDS: LR 1,000 ML IV SCH (14:30)
[2024-02-05] MEDS: GABAPENTIN 300 MG CAPSULE PO SCH (15:00)
[2024-02-05 15:50] VITALS: BP_SYST 149; PULSE 65; RESP 16; TEMP 96.4; O2SAT 96
[2024-02-05] MEDS: ONDANSETRON HCL 4 MG/2 ML VIAL IVP PRN (15:57)
[2024-02-05] MEDS: HYDROmorphone 1 MG/ML INJ. CARTRIDGE IVP PRN ×2 (15:59→19:04)
[2024-02-05 20:15] VITALS: BP_SYST 171; PULSE 90; RESP 18; TEMP 97.6; O2SAT 98
[2024-02-05] MEDS: KETOROLAC TROMETHAMINE 15 MG VIAL IVP SCH (23:03)
[2024-02-06] VITALS (8 sets, daily range): BP systolic 93–147; PULSE 69–113; RESP 14–18; TEMP 97.3–98.2; O2SAT 92–99
[2024-02-06] MEDS: LOSARTAN POTASSIUM 50 MG TABLET (COZAAR) PO ONE (03:58)
[2024-02-06] MEDS: ENOXAPARIN SODIUM 40 MG/0.4 ML SYRINGE SUBCUT SCH (09:11)
[2024-02-06 09:34] LABS: HEMATOCRIT 29.4 % (36-48); HEMOGLOBIN 9.9 g/dL (12.0-16.0); MEAN CORPUSCULAR HEMOGLOBIN 29 pg (27-31); MEAN CORPUSCULAR HGB CONC 34 % (32-36); MEAN CORPUSCULAR VOLUME 87 fL (79.0-98.0); PLATELET COUNT (AUTO) 315 K/uL (130-430); RED BLOOD CELL COUNT(AUTO) 3.38 MIL/uL (4.2-6.2); RED CELL DISTRIBUTION WIDTH 14.2 % (9.0-15.0); WHITE BLOOD COUNT (AUTO) 23.3 K/uL (4.8-10.8)
[2024-02-06 09:49] LABS: CALCIUM 8.5 mg/dL (8.4-11.0); CREATININE 1.81 mg/dL (0.55-1.30); POTASSIUM 4.5 mmol/L (3.5-5.1)
[2024-02-06 10:34] LABS: BASOPHILS % (MANUAL) 0 % (0-2); EOSINOPHILS % (MANUAL) 0 % (0-7); LYMPHOCYTES % (MANUAL) 16 % (20-46); MONOCYTES % (MANUAL) 8 % (0-11); PLATELET ESTIMATE ADEQUATE (ADEQUATE)
[2024-02-06] MEDS ORDERED: ALBUTEROL SULFATE 0.083% 2.5 MG/3 ML VIAL.NEB INH PRN (13:15)
[2024-02-06] MEDS: SUCRALFATE 1 GM/10 ML UDC GT ONE (14:25)
[2024-02-06] MEDS: SIMETHICONE 80 MG TAB.CHEW PO SCH (14:25)
[2024-02-06] MEDS ORDERED: IPRATROPIUM BROM 0.5 MG/2.5 ML VIAL.NEB (ATROVENT) INH SCH (15:00)
[2024-02-06] MEDS: LR 1,000 ML IV ONE (15:43)
[2024-02-06 16:03] LABS: HEMATOCRIT 24.9 % (36-48); HEMOGLOBIN 8.5 g/dL (12.0-16.0); MEAN CORPUSCULAR HEMOGLOBIN 30 pg (27-31); MEAN CORPUSCULAR HGB CONC 34 % (32-36); MEAN CORPUSCULAR VOLUME 87 fL (79.0-98.0); PLATELET COUNT (AUTO) 272 K/uL (130-430); RED BLOOD CELL COUNT(AUTO) 2.88 MIL/uL (4.2-6.2); RED CELL DISTRIBUTION WIDTH 14.2 % (9.0-15.0); WHITE BLOOD COUNT (AUTO) 23.2 K/uL (4.8-10.8)
[2024-02-06] MEDS: SUCRALFATE 1 GM/10 ML UDC GT SCH (17:25)
[2024-02-06] MEDS: MONTELUKAST 10 MG TABLET PO SCH (17:25)
[2024-02-06 17:45] LABS: BAND % (MANUAL) 2 % (0-6); BASOPHILS % (MANUAL) 0 % (0-2); EOSINOPHILS % (MANUAL) 0 % (0-7); LYMPHOCYTES % (MANUAL) 20 % (20-46); MONOCYTES % (MANUAL) 6 % (0-11)
[2024-02-06 17:46] LABS: PLATELET ESTIMATE ADEQUATE (ADEQUATE)
[2024-02-06] MEDS: ALBUTEROL SULFATE 0.083% 2.5 MG/3 ML VIAL.NEB INH SCH (19:00)
[2024-02-06] MEDS: IPRATROPIUM BROM 0.5 MG/2.5 ML VIAL.NEB (ATROVENT) INH SCH (19:00)
[2024-02-06] MEDS: BUDESONIDE 0.5 MG/2 ML AMPUL.NEB INH SCH (19:00)
[2024-02-06] MEDS: LACTOBACILLUS RHAMNOSUS GG 1 CAP CAPSULE PO SCH (21:08)
[2024-02-06] MEDS: PANTOPRAZOLE SODIUM 40 MG TAB PO SCH (21:08)
[2024-02-06] MEDS: DIVALPROEX SODIUM 500 MG TAB.SR.24H (DEPAKOTE ER) PO SCH (21:09)
[2024-02-07] VITALS (11 sets, daily range): BP systolic 106–145; PULSE 69–108; RESP 16–20; TEMP 97–98.6; O2SAT 95–100
[2024-02-07 05:53] LABS: BASOPHILS % (AUTO) 0.1 % (0.0-2.0); EOSINOPHILS # (AUTO) 0.1 K/uL (0.0-0.4); EOSINOPHILS % (AUTO) 0.3 % (0.0-4.0); HEMATOCRIT 22.1 % (36-48); HEMOGLOBIN 7.5 g/dL (12.0-16.0); LYMPHOCYTES # (AUTO) 4.1 K/uL (1.0-5.5); LYMPHOCYTES % (AUTO) 22.5 % (20.5-51.5); MEAN CORPUSCULAR HEMOGLOBIN 29 pg (27-31); MEAN CORPUSCULAR HGB CONC 34 % (32-36); MEAN CORPUSCULAR VOLUME 87 fL (79.0-98.0); MONOCYTES # (AUTO) 2.2 K/uL (0.0-1.0); NEUTROPHILS # (AUTO) 11.8 K/uL (1.8-7.7); NEUTROPHILS % (AUTO) 65.1 % (40.0-70.0); PLATELET COUNT (AUTO) 183 K/uL (130-430); RED BLOOD CELL COUNT(AUTO) 2.55 MIL/uL (4.2-6.2); RED CELL DISTRIBUTION WIDTH 14.5 % (9.0-15.0); WHITE BLOOD COUNT (AUTO) 18.1 K/uL (4.8-10.8)
[2024-02-07 06:22] LABS: CALCIUM 8.4 mg/dL (8.4-11.0); CREATININE 1.75 mg/dL (0.55-1.30); POTASSIUM 4.1 mmol/L (3.5-5.1)
[2024-02-07] MEDS ORDERED: LOSARTAN POTASSIUM 25 MG TABLET PO SCH (09:00)
[2024-02-07] MEDS: MULTIVITS,CA,MINERALS/IRON/FA 1 TABLET PO SCH (09:02)
[2024-02-07] MEDS: PSEUDOEPHEDRINE HCL 30 MG TABLET PO SCH (09:03)
[2024-02-07] MEDS: LORATADINE 10 MG TABLET PO SCH (09:03)
[2024-02-07] MEDS: ASCORBIC ACID 500 MG TABLET PO SCH (09:03)
[2024-02-07] MEDS: ALBUMIN HUMAN 25% 50 ML IV SCH (09:19)
[2024-02-07 09:20] LABS: BASOPHILS % (AUTO) 0.2 % (0.0-2.0); EOSINOPHILS # (AUTO) 0.1 K/uL (0.0-0.4); EOSINOPHILS % (AUTO) 0.4 % (0.0-4.0); HEMATOCRIT 23.4 % (36-48); HEMOGLOBIN 7.8 g/dL (12.0-16.0); LYMPHOCYTES # (AUTO) 3.2 K/uL (1.0-5.5); LYMPHOCYTES % (AUTO) 19.6 % (20.5-51.5); MEAN CORPUSCULAR HEMOGLOBIN 29 pg (27-31); MEAN CORPUSCULAR HGB CONC 33 % (32-36); MEAN CORPUSCULAR VOLUME 88 fL (79.0-98.0); MONOCYTES # (AUTO) 1.6 K/uL (0.0-1.0); NEUTROPHILS # (AUTO) 11.5 K/uL (1.8-7.7); NEUTROPHILS % (AUTO) 69.8 % (40.0-70.0); PLATELET COUNT (AUTO) 178 K/uL (130-430); RED BLOOD CELL COUNT(AUTO) 2.68 MIL/uL (4.2-6.2); RED CELL DISTRIBUTION WIDTH 14.3 % (9.0-15.0); WHITE BLOOD COUNT (AUTO) 16.5 K/uL (4.8-10.8)
[2024-02-07] MEDS: HYDROmorphone 1 MG/ML INJ. CARTRIDGE IVP PRN (13:38)
[2024-02-07] MEDS: MEROPENEM 1 GM IVPB PREMIX 50 ML IV ONE (15:46)
[2024-02-07] MEDS: HYDROcodone/ACETAMIN 5-325 MG TAB (NORCO/ VICODIN) PO PRN (15:58)
[2024-02-07 17:03] LABS: BASOPHILS # (AUTO) 0.1 K/uL (0.0-0.2); BASOPHILS % (AUTO) 0.5 % (0.0-2.0); EOSINOPHILS # (AUTO) 0.1 K/uL (0.0-0.4); EOSINOPHILS % (AUTO) 0.4 % (0.0-4.0); HEMATOCRIT 25.4 % (36-48); HEMOGLOBIN 8.7 g/dL (12.0-16.0); LYMPHOCYTES # (AUTO) 2.4 K/uL (1.0-5.5); LYMPHOCYTES % (AUTO) 15.7 % (20.5-51.5); MEAN CORPUSCULAR HEMOGLOBIN 30 pg (27-31); MEAN CORPUSCULAR HGB CONC 34 % (32-36); MEAN CORPUSCULAR VOLUME 87 fL (79.0-98.0); MONOCYTES # (AUTO) 1.6 K/uL (0.0-1.0); MONOCYTES % (AUTO) 10.9 % (1.7-9.3); NEUTROPHILS % (AUTO) 72.5 % (40.0-70.0); PLATELET COUNT (AUTO) 158 K/uL (130-430); RED BLOOD CELL COUNT(AUTO) 2.94 MIL/uL (4.2-6.2); RED CELL DISTRIBUTION WIDTH 14.5 % (9.0-15.0); WHITE BLOOD COUNT (AUTO) 15.2 K/uL (4.8-10.8)
[2024-02-07] MEDS: MEROPENEM 1 GM IVPB PREMIX 50 ML IV SCH (20:56)
[2024-02-08] VITALS (8 sets, daily range): BP systolic 130–150; PULSE 70–100; RESP 16–20; TEMP 97.5–99.8; O2SAT 96–100
[2024-02-08 06:04] LABS: BASOPHILS % (AUTO) 0.2 % (0.0-2.0); EOSINOPHILS # (AUTO) 0.1 K/uL (0.0-0.4); EOSINOPHILS % (AUTO) 0.6 % (0.0-4.0); HEMATOCRIT 24.7 % (36-48); HEMOGLOBIN 8.4 g/dL (12.0-16.0); LYMPHOCYTES # (AUTO) 2.5 K/uL (1.0-5.5); LYMPHOCYTES % (AUTO) 16.3 % (20.5-51.5); MEAN CORPUSCULAR HEMOGLOBIN 30 pg (27-31); MEAN CORPUSCULAR HGB CONC 34 % (32-36); MEAN CORPUSCULAR VOLUME 87 fL (79.0-98.0); MONOCYTES # (AUTO) 1.4 K/uL (0.0-1.0); MONOCYTES % (AUTO) 8.9 % (1.7-9.3); NEUTROPHILS # (AUTO) 11.4 K/uL (1.8-7.7); PLATELET COUNT (AUTO) 163 K/uL (130-430); RED BLOOD CELL COUNT(AUTO) 2.85 MIL/uL (4.2-6.2); RED CELL DISTRIBUTION WIDTH 14.7 % (9.0-15.0); WHITE BLOOD COUNT (AUTO) 15.5 K/uL (4.8-10.8)
[2024-02-08 06:11] LABS: CALCIUM 8.4 mg/dL (8.4-11.0); CREATININE 0.86 mg/dL (0.55-1.30); POTASSIUM 3.6 mmol/L (3.5-5.1)
[2024-02-09] VITALS (8 sets, daily range): BP systolic 133–152; PULSE 82–94; RESP 15–18; TEMP 97.5–98.3; O2SAT 95–100
[2024-02-09 06:42] LABS: EOSINOPHILS % (AUTO) 7.1 % (0.0-4.0); HEMATOCRIT 26.6 % (36-48); HEMOGLOBIN 9.1 g/dL (12.0-16.0); LYMPHOCYTES # (AUTO) 1.7 K/uL (1.0-5.5); LYMPHOCYTES % (AUTO) 11.8 % (20.5-51.5); MEAN CORPUSCULAR HEMOGLOBIN 30 pg (27-31); MEAN CORPUSCULAR HGB CONC 34 % (32-36); MEAN CORPUSCULAR VOLUME 87 fL (79.0-98.0); MONOCYTES # (AUTO) 3.5 K/uL (0.0-1.0); MONOCYTES % (AUTO) 24.8 % (1.7-9.3); NEUTROPHILS % (AUTO) 56.3 % (40.0-70.0); PLATELET COUNT (AUTO) 192 K/uL (130-430); RED BLOOD CELL COUNT(AUTO) 3.07 MIL/uL (4.2-6.2); RED CELL DISTRIBUTION WIDTH 14.5 % (9.0-15.0); WHITE BLOOD COUNT (AUTO) 14.2 K/uL (4.8-10.8)
[2024-02-09 06:54] LABS: CALCIUM 8.6 mg/dL (8.4-11.0); CREATININE 0.81 mg/dL (0.55-1.30); POTASSIUM 3.5 mmol/L (3.5-5.1)
[2024-02-09 11:55] LABS: BASOPHILS # (AUTO) 0.1 K/uL (0.0-0.2); BASOPHILS % (AUTO) 0.4 % (0.0-2.0); EOSINOPHILS # (AUTO) 0.5 K/uL (0.0-0.4); EOSINOPHILS % (AUTO) 3.8 % (0.0-4.0); HEMATOCRIT 29.4 % (36-48); LYMPHOCYTES # (AUTO) 2.5 K/uL (1.0-5.5); LYMPHOCYTES % (AUTO) 17.3 % (20.5-51.5); MEAN CORPUSCULAR HEMOGLOBIN 30 pg (27-31); MEAN CORPUSCULAR HGB CONC 34 % (32-36); MEAN CORPUSCULAR VOLUME 87 fL (79.0-98.0); MONOCYTES # (AUTO) 1.3 K/uL (0.0-1.0); MONOCYTES % (AUTO) 8.9 % (1.7-9.3); NEUTROPHILS % (AUTO) 69.6 % (40.0-70.0); PLATELET COUNT (AUTO) 236 K/uL (130-430); RED BLOOD CELL COUNT(AUTO) 3.39 MIL/uL (4.2-6.2); RED CELL DISTRIBUTION WIDTH 14.7 % (9.0-15.0); WHITE BLOOD COUNT (AUTO) 14.3 K/uL (4.8-10.8)
[2024-02-09] MEDS: traMADol HCL HCL 50 MG TABLET (ULTRAM) PO SCH (16:00)
[2024-02-10] VITALS (9 sets, daily range): BP systolic 133–153; PULSE 79–96; RESP 16–19; TEMP 97.5–98.5; O2SAT 95–100
[2024-02-10 06:14] LABS: BASOPHILS # (AUTO) 0.1 K/uL (0.0-0.2); BASOPHILS % (AUTO) 0.6 % (0.0-2.0); EOSINOPHILS # (AUTO) 0.5 K/uL (0.0-0.4); EOSINOPHILS % (AUTO) 3.9 % (0.0-4.0); HEMATOCRIT 25.2 % (36-48); HEMOGLOBIN 8.6 g/dL (12.0-16.0); LYMPHOCYTES # (AUTO) 2.9 K/uL (1.0-5.5); LYMPHOCYTES % (AUTO) 21.7 % (20.5-51.5); MEAN CORPUSCULAR HEMOGLOBIN 29 pg (27-31); MEAN CORPUSCULAR HGB CONC 34 % (32-36); MEAN CORPUSCULAR VOLUME 86 fL (79.0-98.0); MONOCYTES # (AUTO) 1.1 K/uL (0.0-1.0); NEUTROPHILS # (AUTO) 8.7 K/uL (1.8-7.7); NEUTROPHILS % (AUTO) 65.8 % (40.0-70.0); PLATELET COUNT (AUTO) 227 K/uL (130-430); RED BLOOD CELL COUNT(AUTO) 2.92 MIL/uL (4.2-6.2); RED CELL DISTRIBUTION WIDTH 14.3 % (9.0-15.0); WHITE BLOOD COUNT (AUTO) 13.2 K/uL (4.8-10.8)
[2024-02-10 06:24] LABS: CALCIUM 8.5 mg/dL (8.4-11.0); CREATININE 1.3 mg/dL (0.55-1.30); POTASSIUM 3.9 mmol/L (3.5-5.1)
[2024-02-10 14:02] LABS: BILIRUBIN,URINE NEGATIVE (NEGATIVE); BLOOD, URINE NEGATIVE (NEGATIVE); CLARITY/URINE CLEAR (CLEAR); COLOR,URINE YELLOW (YELLOW); GLUCOSE,URINE NEGATIVE (NEGATIVE); KETONES,URINE NEGATIVE (NEGATIVE); LEUKOCYTE ESTERASE ,URINE NEGATIVE (NEGATIVE); NITRITE, URINE NEGATIVE (NEGATIVE); PROTEIN URINE NEGATIVE (NEGATIVE); UROBILINOGEN,URINE 0.2 (0.2-1.0)
[2024-02-11] VITALS (8 sets, daily range): BP systolic 125–139; PULSE 60–94; RESP 14–20; TEMP 97.4–99.6; O2SAT 96–100
[2024-02-11 04:02] LABS: BASOPHILS # (AUTO) 0.1 K/uL (0.0-0.2); BASOPHILS % (AUTO) 0.8 % (0.0-2.0); EOSINOPHILS # (AUTO) 0.5 K/uL (0.0-0.4); EOSINOPHILS % (AUTO) 4.1 % (0.0-4.0); HEMATOCRIT 25.3 % (36-48); HEMOGLOBIN 8.5 g/dL (12.0-16.0); LYMPHOCYTES # (AUTO) 2.7 K/uL (1.0-5.5); LYMPHOCYTES % (AUTO) 21.6 % (20.5-51.5); MEAN CORPUSCULAR HEMOGLOBIN 29 pg (27-31); MEAN CORPUSCULAR HGB CONC 34 % (32-36); MEAN CORPUSCULAR VOLUME 86 fL (79.0-98.0); MONOCYTES # (AUTO) 1.4 K/uL (0.0-1.0); NEUTROPHILS # (AUTO) 7.7 K/uL (1.8-7.7); NEUTROPHILS % (AUTO) 62.5 % (40.0-70.0); PLATELET COUNT (AUTO) 265 K/uL (130-430); RED BLOOD CELL COUNT(AUTO) 2.93 MIL/uL (4.2-6.2); RED CELL DISTRIBUTION WIDTH 14.2 % (9.0-15.0); WHITE BLOOD COUNT (AUTO) 12.3 K/uL (4.8-10.8)
[2024-02-11 04:44] LABS: CALCIUM 8.2 mg/dL (8.4-11.0); CREATININE 1.28 mg/dL (0.55-1.30); POTASSIUM 3.8 mmol/L (3.5-5.1)
[2024-02-11] MEDS: GABAPENTIN 300 MG CAPSULE PO SCH (14:45)
[2024-02-12] VITALS (8 sets, daily range): BP systolic 118–135; PULSE 96–98; RESP 17–20; TEMP 97.7–98.8; O2SAT 96–99
[2024-02-12 09:08] LABS: BASOPHILS # (AUTO) 0.1 K/uL (0.0-0.2); BASOPHILS % (AUTO) 0.7 % (0.0-2.0); EOSINOPHILS # (AUTO) 0.4 K/uL (0.0-0.4); EOSINOPHILS % (AUTO) 2.9 % (0.0-4.0); HEMATOCRIT 27.3 % (36-48); HEMOGLOBIN 9.3 g/dL (12.0-16.0); LYMPHOCYTES # (AUTO) 3.2 K/uL (1.0-5.5); LYMPHOCYTES % (AUTO) 21.7 % (20.5-51.5); MEAN CORPUSCULAR HEMOGLOBIN 29 pg (27-31); MEAN CORPUSCULAR HGB CONC 34 % (32-36); MEAN CORPUSCULAR VOLUME 86 fL (79.0-98.0); MONOCYTES # (AUTO) 1.3 K/uL (0.0-1.0); NEUTROPHILS # (AUTO) 9.6 K/uL (1.8-7.7); NEUTROPHILS % (AUTO) 65.7 % (40.0-70.0); PLATELET COUNT (AUTO) 345 K/uL (130-430); RED BLOOD CELL COUNT(AUTO) 3.16 MIL/uL (4.2-6.2); RED CELL DISTRIBUTION WIDTH 14.4 % (9.0-15.0); WHITE BLOOD COUNT (AUTO) 14.6 K/uL (4.8-10.8)
[2024-02-12 09:24] LABS: CALCIUM 8.7 mg/dL (8.4-11.0); CREATININE 0.78 mg/dL (0.55-1.30); POTASSIUM 3.7 mmol/L (3.5-5.1)
[2024-02-13] VITALS (7 sets, daily range): BP systolic 113–141; PULSE 81–89; RESP 18–20; TEMP 97.7–99; O2SAT 95–99
[2024-02-13 05:44] LABS: BASOPHILS # (AUTO) 0.1 K/uL (0.0-0.2); BASOPHILS % (AUTO) 0.8 % (0.0-2.0); EOSINOPHILS # (AUTO) 0.5 K/uL (0.0-0.4); EOSINOPHILS % (AUTO) 3.4 % (0.0-4.0); HEMATOCRIT 25.1 % (36-48); HEMOGLOBIN 8.7 g/dL (12.0-16.0); LYMPHOCYTES # (AUTO) 3.2 K/uL (1.0-5.5); LYMPHOCYTES % (AUTO) 22.3 % (20.5-51.5); MEAN CORPUSCULAR HEMOGLOBIN 30 pg (27-31); MEAN CORPUSCULAR HGB CONC 35 % (32-36); MEAN CORPUSCULAR VOLUME 87 fL (79.0-98.0); MONOCYTES # (AUTO) 1.4 K/uL (0.0-1.0); MONOCYTES % (AUTO) 9.7 % (1.7-9.3); NEUTROPHILS # (AUTO) 9.1 K/uL (1.8-7.7); NEUTROPHILS % (AUTO) 63.8 % (40.0-70.0); PLATELET COUNT (AUTO) 364 K/uL (130-430); RED BLOOD CELL COUNT(AUTO) 2.89 MIL/uL (4.2-6.2); RED CELL DISTRIBUTION WIDTH 14.4 % (9.0-15.0); WHITE BLOOD COUNT (AUTO) 14.3 K/uL (4.8-10.8)
[2024-02-13 06:16] LABS: ALBUMIN 2.3 g/dL (3.4-4.8); CALCIUM 8.5 mg/dL (8.4-11.0); CREATININE 0.77 mg/dL (0.55-1.30); POTASSIUM 3.6 mmol/L (3.5-5.1); TOTAL BILIRUBIN 0.4 mg/dL (0.0-1.0); TOTAL PROTEIN, SERUM 6.1 g/dL (6.4-8.3)
[2024-02-13] MEDS: OXYCODONE/ACETAMINOPHEN 5-325 TABLET PO PRN (14:02)
[2024-02-13] MEDS: metroNIDAZOLE 250 MG TABLET PO ONE (15:34)
[2024-02-13] MEDS: metroNIDAZOLE 250 MG TABLET PO SCH (21:03)
[2024-02-14] VITALS (7 sets, daily range): BP systolic 106–132; PULSE 75–88; RESP 18; TEMP 97.6–99.3; O2SAT 93–99
[2024-02-14 05:15] LABS: BASOPHILS # (AUTO) 0.1 K/uL (0.0-0.2); BASOPHILS % (AUTO) 0.7 % (0.0-2.0); EOSINOPHILS # (AUTO) 0.7 K/uL (0.0-0.4); EOSINOPHILS % (AUTO) 4.7 % (0.0-4.0); HEMATOCRIT 26.5 % (36-48); HEMOGLOBIN 9.2 g/dL (12.0-16.0); LYMPHOCYTES # (AUTO) 3.5 K/uL (1.0-5.5); LYMPHOCYTES % (AUTO) 25.1 % (20.5-51.5); MEAN CORPUSCULAR HEMOGLOBIN 30 pg (27-31); MEAN CORPUSCULAR HGB CONC 35 % (32-36); MEAN CORPUSCULAR VOLUME 86 fL (79.0-98.0); MONOCYTES # (AUTO) 1.3 K/uL (0.0-1.0); MONOCYTES % (AUTO) 9.3 % (1.7-9.3); NEUTROPHILS # (AUTO) 8.5 K/uL (1.8-7.7); NEUTROPHILS % (AUTO) 60.2 % (40.0-70.0); PLATELET COUNT (AUTO) 446 K/uL (130-430); RED BLOOD CELL COUNT(AUTO) 3.09 MIL/uL (4.2-6.2); RED CELL DISTRIBUTION WIDTH 14.4 % (9.0-15.0)
[2024-02-14 05:36] LABS: CALCIUM 8.9 mg/dL (8.4-11.0); CREATININE 0.93 mg/dL (0.55-1.30); POTASSIUM 4.3 mmol/L (3.5-5.1)
[2024-02-14] MEDS: metroNIDAZOLE 500 MG TABLET PO SCH (06:54)
[2024-02-14] MEDS ORDERED: levoFLOXacin 250 MG TABLET PO SCH (10:00)
[2024-02-14] MEDS: ACETAMINOPHEN 325 MG TABLET PO ONE (15:30)
[2024-02-14] MEDS: levoFLOXacin 500 MG TABLET PO SCH (17:55)
[2024-02-15 01:09] VITALS: BP_SYST 141; PULSE 84; RESP 18; TEMP 98.7; O2SAT 98
[2024-02-15 07:22] VITALS: O2SAT 96
[2024-02-15 08:00] VITALS: BP_SYST 120; PULSE 85; RESP 18; TEMP 98.4; O2SAT 95
[2024-02-15] MEDS ORDERED: LEVO-62 PO (08:01)
[2024-02-15] MEDS ORDERED: METR-154 PO (08:01)
[2024-02-15 08:55] LABS: BASOPHILS # (AUTO) 0.1 K/uL (0.0-0.2); BASOPHILS % (AUTO) 0.7 % (0.0-2.0); EOSINOPHILS # (AUTO) 0.3 K/uL (0.0-0.4); HEMATOCRIT 28.8 % (36-48); HEMOGLOBIN 9.8 g/dL (12.0-16.0); LYMPHOCYTES # (AUTO) 1.5 K/uL (1.0-5.5); LYMPHOCYTES % (AUTO) 11.4 % (20.5-51.5); MEAN CORPUSCULAR HEMOGLOBIN 30 pg (27-31); MEAN CORPUSCULAR HGB CONC 34 % (32-36); MEAN CORPUSCULAR VOLUME 87 fL (79.0-98.0); MONOCYTES # (AUTO) 0.5 K/uL (0.0-1.0); MONOCYTES % (AUTO) 3.7 % (1.7-9.3); NEUTROPHILS # (AUTO) 10.9 K/uL (1.8-7.7); NEUTROPHILS % (AUTO) 82.2 % (40.0-70.0); PLATELET COUNT (AUTO) 468 K/uL (130-430); RED BLOOD CELL COUNT(AUTO) 3.32 MIL/uL (4.2-6.2); RED CELL DISTRIBUTION WIDTH 14.5 % (9.0-15.0); WHITE BLOOD COUNT (AUTO) 13.3 K/uL (4.8-10.8)
[2024-02-15 08:59] LABS: CALCIUM 8.9 mg/dL (8.4-11.0); CREATININE 0.94 mg/dL (0.55-1.30); POTASSIUM 4.2 mmol/L (3.5-5.1)
== END 2024-02-15 17:05 | disposition home health service (06) | DRG 330 ==
LOC: SED 09:24 → SMU 11:10 → STU 02-06 22:07 → SMU 02-08 17:37
PROVIDERS: ADMIT Specialist; ATTEND Specialist
PROC: 0D1B0Z4 Bypass Ileum to Cutaneous, Open Approach (ICD-10-PCS; 2024-02-05)
PROC: 0DBN0ZZ Excision of Sigmoid Colon, Open Approach (ICD-10-PCS; 2024-02-05)
PROC: 0DBP0ZZ Excision of Rectum, Open Approach (ICD-10-PCS; 2024-02-05)
PROC: 0DN80ZZ Release Small Intestine, Open Approach (ICD-10-PCS; 2024-02-05)
PROC: 30233N1 Transfusion of Nonautologous Red Blood Cells into Peripheral Vein, Percutaneous Approach (ICD-10-PCS; principal; 2024-02-07)
DX: K57.20 Diverticulitis of large intestine with perforation and abscess without bleeding (principal); N17.9 Acute kidney failure, unspecified; I10 Essential (primary) hypertension; J45.909 Unspecified asthma, uncomplicated; D72.829 Elevated white blood cell count, unspecified; D64.9 Anemia, unspecified; D75.839 Thrombocytosis, unspecified; K66.0 Peritoneal adhesions (postprocedural) (postinfection); Z91.010 Allergy to peanuts; Z91.018 Allergy to other foods; Z88.8 Allergy status to other drugs, medicaments and biological substances; Z88.5 Allergy status to narcotic agent; Z79.51 Long term (current) use of inhaled steroids; Z79.899 Other long term (current) drug therapy; Z88.2 Allergy status to sulfonamides; Z90.49 Acquired absence of other specified parts of digestive tract
CPT/HCPCS: 36415; 71045; 76770; 78226; 80048; 80053; 80076; 81001; 81003; 83605; 84484; 85007; 85025; 85027; 85610; 85651; 85730; 86886; 86900; 86901; 86920; 87040; 87081; 87086; 87230; 88305; 88307; 93005; 93306; 94640; 94664; 94760; 97110-GP; 97116-GP; 97530-GP; 99285; A9537; C1727; C9290; G0378; J0330; J1170; J1650; J1885; J2185; J2405; J2543; J2704; J2765; J3465; J3490; J7060; J7120; J7626; P9021; P9046

== ENCOUNTER 2024-02-20 21:32 | Inpatient (IN) | payer OTHER ==
[~2024-02-20] VITALS: Ht 154.9 cm; Wt 56.2 kg
[~2024-02-20 21:32] MED LIST changes: -CINN1CAP2 PO; -HYDR-3919 PO; +METR-154 PO; +PSEU30TA36 PO; -[UNRECOGNIZED DRUG - CODE] PO
[2024-02-20 21:39] VITALS: BP_SYST 115; PULSE 113; RESP 16; TEMP 98.2; O2SAT 100
[2024-02-20 23:13] LABS: BASOPHILS # (AUTO) 0.2 K/uL (0.0-0.2); EOSINOPHILS # (AUTO) 0.3 K/uL (0.0-0.4); EOSINOPHILS % (AUTO) 1.8 % (0.0-4.0); HEMOGLOBIN 10.2 g/dL (12.0-16.0); LYMPHOCYTES # (AUTO) 3.7 K/uL (1.0-5.5); LYMPHOCYTES % (AUTO) 23.9 % (20.5-51.5); MEAN CORPUSCULAR HEMOGLOBIN 30 pg (27-31); MEAN CORPUSCULAR HGB CONC 34 % (32-36); MEAN CORPUSCULAR VOLUME 87 fL (79.0-98.0); MONOCYTES % (AUTO) 6.3 % (1.7-9.3); NEUTROPHILS # (AUTO) 10.4 K/uL (1.8-7.7); PLATELET COUNT (AUTO) 545 K/uL (130-430); RED BLOOD CELL COUNT(AUTO) 3.44 MIL/uL (4.2-6.2); RED CELL DISTRIBUTION WIDTH 14.6 % (9.0-15.0); WHITE BLOOD COUNT (AUTO) 15.4 K/uL (4.8-10.8)
[2024-02-20] MEDS: MORPHINE 4 MG INJ. 4 MG/ML VIAL IVP ONE (23:37)
[2024-02-20] MEDS: ONDANSETRON HCL 4 MG/2 ML VIAL IVP ONE (23:38)
[2024-02-20 23:53] LABS: CALCIUM 9.4 mg/dL (8.4-11.0); CREATININE 1.17 mg/dL (0.55-1.30); POTASSIUM 4.4 mmol/L (3.5-5.1)
[2024-02-20 23:57] LABS: ALBUMIN 2.9 g/dL (3.4-4.8); BILIRUBIN,DIRECT 0.1 mg/dL (0.0-0.3); TOTAL BILIRUBIN 0.3 mg/dL (0.0-1.0); TOTAL PROTEIN, SERUM 7.4 g/dL (6.4-8.3)
[2024-02-21] MEDS ORDERED: PIPERACILLIN/TAZOBACTAM 3.375 GM/VIAL (ZOSYN) IV ONE ×2 (01:12→01:13)
[2024-02-21] MEDS: PIPERACILLIN/TAZO 3.375 GM in NS 50 ML IV ONE (01:19)
[2024-02-21 01:54] LABS: BILIRUBIN,URINE NEGATIVE (NEGATIVE); BLOOD, URINE NEGATIVE (NEGATIVE); COLOR,URINE YELLOW (YELLOW); GLUCOSE,URINE NEGATIVE (NEGATIVE); KETONES,URINE NEGATIVE (NEGATIVE); LEUKOCYTE ESTERASE ,URINE TRACE (NEGATIVE); NITRITE, URINE NEGATIVE (NEGATIVE); PROTEIN URINE NEGATIVE (NEGATIVE); UROBILINOGEN,URINE 0.2 (0.2-1.0)
[2024-02-21] MEDS: NACL 0.9% 1,000 ML IV ONE (01:54)
[2024-02-21 02:45] LABS: CLARITY/URINE HAZY (CLEAR)
[2024-02-21 03:01] LABS: BACTERIA,URINE RARE /HPF (None Seen); RBC,URINE 0-3 /HPF (0-3)
[2024-02-21] MEDS ORDERED: MORPHINE 2 MG/ML INJ. SYRINGE IVP PRN ×2 (05:45→10:45)
[2024-02-21] MEDS ORDERED: ONDANSETRON HCL 4 MG/2 ML VIAL IVP PRN ×2 (05:45→10:45)
[2024-02-21] MEDS ORDERED: HYDROcodone/ACETAMIN 5-325 MG TAB (NORCO/ VICODIN) PO PRN (10:45)
[2024-02-21] MEDS ORDERED: IPRATROPIUM BROM 0.5 MG/2.5 ML VIAL.NEB (ATROVENT) INH PRN (10:45)
[2024-02-21] MEDS ORDERED: ACETAMINOPHEN 325 MG TABLET PO PRN (10:45)
[2024-02-21] MEDS ORDERED: NALOXONE HCL 0.4 MG/ML AMP (NARCAN) IVP PRN (10:45)
[2024-02-21] MEDS ORDERED: HYDROcodone/ACETAMIN 10-325 MG TAB PO PRN (10:45)
[2024-02-21 11:24] LABS: BASOPHILS # (AUTO) 0.1 K/uL (0.0-0.2); BASOPHILS % (AUTO) 0.9 % (0.0-2.0); EOSINOPHILS # (AUTO) 0.3 K/uL (0.0-0.4); EOSINOPHILS % (AUTO) 3.2 % (0.0-4.0); HEMATOCRIT 27.7 % (36-48); HEMOGLOBIN 9.5 g/dL (12.0-16.0); LYMPHOCYTES # (AUTO) 2.7 K/uL (1.0-5.5); LYMPHOCYTES % (AUTO) 26.8 % (20.5-51.5); MEAN CORPUSCULAR HEMOGLOBIN 30 pg (27-31); MEAN CORPUSCULAR HGB CONC 34 % (32-36); MEAN CORPUSCULAR VOLUME 88 fL (79.0-98.0); MONOCYTES # (AUTO) 0.7 K/uL (0.0-1.0); MONOCYTES % (AUTO) 6.6 % (1.7-9.3); NEUTROPHILS # (AUTO) 6.2 K/uL (1.8-7.7); NEUTROPHILS % (AUTO) 62.5 % (40.0-70.0); PLATELET COUNT (AUTO) 434 K/uL (130-430); RED BLOOD CELL COUNT(AUTO) 3.16 MIL/uL (4.2-6.2)
[2024-02-21] MEDS: NACL 0.9% 1,000 ML IV SCH (11:42)
[2024-02-21] MEDS: PIPERACILLIN/TAZO 3.375 GM in D5W 50 ML IV SCH (11:43)
[2024-02-21 11:48] LABS: ALBUMIN 2.6 g/dL (3.4-4.8); CALCIUM 8.7 mg/dL (8.4-11.0); CREATININE 0.99 mg/dL (0.55-1.30); POTASSIUM 4.8 mmol/L (3.5-5.1); TOTAL BILIRUBIN 0.4 mg/dL (0.0-1.0); TOTAL PROTEIN, SERUM 6.5 g/dL (6.4-8.3)
[2024-02-21 11:52] VITALS: TEMP 97.8
[2024-02-21 12:02] VITALS: BP_SYST 111; PULSE 71; O2SAT 95
[2024-02-21] MEDS: OXYCODONE/ACETAMINOPHEN 5-325 TABLET PO PRN (13:22)
[2024-02-21 17:49] VITALS: BP_SYST 101; PULSE 77; RESP 14; O2SAT 100
== END 2024-02-21 17:50 | disposition home or self-care (01) | DRG 920 ==
LOC: SED 21:32 → SMU 02-21 05:44
PROVIDERS: ADMIT Family Medicine; ATTEND Family Medicine
DX: T85.848A Pain due to other internal prosthetic devices, implants and grafts, initial encounter (principal); E44.1 Mild protein-calorie malnutrition; K52.9 Noninfective gastroenteritis and colitis, unspecified; D64.9 Anemia, unspecified; D75.839 Thrombocytosis, unspecified; Z79.51 Long term (current) use of inhaled steroids; Z79.899 Other long term (current) drug therapy; Z91.010 Allergy to peanuts; Z91.018 Allergy to other foods; Z88.8 Allergy status to other drugs, medicaments and biological substances; Z68.23 Body mass index [BMI] 23.0-23.9, adult
CPT/HCPCS: 36415; 80048; 80053; 80076; 81000; 81001; 81015; 83605; 83690; 85025; 87040; 94760; 96374; 96375; 99285; J2270; J2405; J2543; J7060

== ENCOUNTER 2024-03-31 12:25 | Day surgery (SDC) | payer OTHER ==
[~2024-03-31] VITALS: Ht 154.9 cm; Wt 55.5 kg
[~2024-03-31 12:25] MED LIST changes: -LEVO-62 PO; -METR-154 PO; +MIDAZOLAM HCL 5 MG/5 ML VIAL ONE; +fentaNYL CITRATE/PF 100 MCG/2 ML AMP ONE
[2024-03-31 13:43] VITALS: O2SAT 100
[2024-03-31] MEDS ORDERED: DIPHENHYDRAMINE INJ 50 MG/ML VIAL ONE (14:54)
[2024-03-31 15:48] VITALS: BP_SYST 139; PULSE 84; RESP 22; TEMP 97.7
== END 2024-03-31 16:10 | disposition home or self-care (01) ==
LOC: SDS 12:25 → SMU 12:33 → SDS 16:10
PROVIDERS: ATTEND Surgery
DX: K62.89 Other specified diseases of anus and rectum (principal); K21.9 Gastro-esophageal reflux disease without esophagitis; M19.90 Unspecified osteoarthritis, unspecified site; F41.9 Anxiety disorder, unspecified; F32.A Depression, unspecified; Z93.2 Ileostomy status; Z79.899 Other long term (current) drug therapy
CPT/HCPCS: 45386; 99152; 99153; G0378; J1200; J2250; J3010